=== PATIENT | male | born 1960 | race Caucasian/White ===

== ENCOUNTER 2024-06-26 08:35 | Day surgery (SDC) | payer MEDICARE ==
[2024-06-26] MEDS ORDERED: Propofol 200 MG/20 ML SDV IV ONE (08:36)
[2024-06-26] MEDS ORDERED: Sodium Chloride 0.9% 10 ML Syringe FLUSH PRN (08:45)
[2024-06-26] MEDS: Sodium Chloride 0.9% 1,000 ML IV SCH (09:09)
[2024-06-26] MEDS ORDERED: Midazolam 1 MG/ML 2 ML SDV ONE (09:28)
[2024-06-26] MEDS ORDERED: Propofol 200 MG/20 ML SDV ONE ×2 (09:28→10:18)
== END 2024-06-26 11:53 | disposition home or self-care (01) ==
LOC: KA.SDS 08:35
PROVIDERS: ATTEND Surgery
DX: Z12.11 Encounter for screening for malignant neoplasm of colon (principal); I10 Essential (primary) hypertension; E11.9 Type 2 diabetes mellitus without complications; Z85.038 Personal history of other malignant neoplasm of large intestine; Z79.899 Other long term (current) drug therapy; Z79.84 Long term (current) use of oral hypoglycemic drugs
CPT/HCPCS: 00811; 82947; J2250; J2704; J3490; J7030